=== PATIENT | male | born 1970 | race African-American/Black ===

== ENCOUNTER 2017-01-19 19:53 | Inpatient (IN) | payer OTHER ==
--- NOTE | 2017-01-19 20:15 | PDOC ---
History of Present Illness - General History Source: Patient Exam Limitations: No Limitations - History of Present Illness Initial Comments: 01/19/17 20:46 The patient is a 46 year old male with significant past medical history of etoh abuse and smoking who presents to the ED sent from [facility] for treatment and evaluation of blood pressure. Patient denies history of blood pressure. His blood pressure is noted to be 190/133 and pulse is 97 here in the ER department. Patient states his blood pressure is normally elevated when he drinks alcohol. He denies lightheadedness, diaphoresis, headache, vision changes , chest pain, palpitations, SOB, jaw pain, shoulder pain, or arm pain. The patient denies fever, chills, cough, abdominal pain, nausea, vomiting, and diarrhea. Allergies: NKDA Social History: etoh abuse, current smoker (PPD), denies drug use. Past Surgical History: None reported PCP: None reported <Chayo Ramírez - Last Filed: 01/19/17 20:46> - General History Source: Patient <Doug Isaac - Last Filed: 01/20/17 02:28> - General Chief Complaint: Blood Pressure Problem Stated Complaint: ELEVATED BLOOD PRESSURE Time Seen by Provider: 01/19/17 20:11 Past History <Chayo Ramírez - Last Filed: 01/19/17 20:46> - Psycho/Social/Smoking Cessation Hx Suicidal Ideation: No Smoking History: Current every day smoker Information on smoking cessation initiated: No Hx Alcohol Use: Yes <Doug Isaac - Last Filed: 01/20/17 02:28> - Past Medical History Allergies/Adverse Reactions: Allergies Allergy/AdvReac Type Severity Reaction Status Date / Time No Known Allergies Allergy Verified 01/19/17 20:45 Home Medications: Ambulatory Orders NK [No Known Home Medication] 01/19/17 Review of Systems - Review of Systems Able to Perform ROS?: Yes Comments:: 01/19/17 20:47 CONSTITUTIONAL: Absent: fever, no chills, no fatigue EYES: Absent: visual changes ENT: Absent: ear pain, no sore throat CARDIOVASCULAR: +elevated bp Absent: chest pain, no palpitations RESPIRATORY: Absent: cough, no SOB GI: Absent: abdominal pain, no nausea, no vomiting, no constipation, no diarrhea GENITOURINARY: Absent: dysuria, no frequency, no hematuria MUSKULOSKELETAL: Absent: back pain, no arthralgia, no myalgia SKIN: Absent: rash NEURO: Absent: headache <Chayo Ramírez - Last Filed: 01/19/17 20:46> *Physical Exam - Vital Signs Last Vital Signs Temp Pulse Resp BP Pulse Ox 98.2 F 97 H 18 190/133 96 01/19/17 20:08 01/19/17 20:08 01/19/17 20:08 01/19/17 20:08 01/19/17 20:08 - Physical Exam Comments: 01/19/17 20:47 GENERAL: Well-appearing, well-nourished. No apparent distress. HEENT: Normocephalic, atraumatic. PERRL, EOM intact. CARDIOVASCULAR: Normal S1, S2. Regular rate and rhythm. PULMONARY: Clear to auscultation bilaterally. ABDOMEN: Soft, non-distended, non-tender. EXTREMITIES: Normal ROM in all four extremities. No gross deformities. SKIN: Warm, dry. No rash NEUROLOGICAL: No focal neurological deficits. <Chayo Ramírez - Last Filed: 01/19/17 20:46> - Vital Signs Last Vital Signs Temp Pulse Resp BP Pulse Ox 98.2 F 97 H 18 190/133 96 01/19/17 20:08 01/19/17 20:08 01/19/17 20:08 01/19/17 20:08 01/19/17 20:08 <Doug Isaac - Last Filed: 01/20/17 02:28> Heart Score/ECG Review - ECG Impressions Comment:: 01/19/17 20:47 NSR @91bpm Possible left atrial enlargement Left ventricular hypertrophy T wave abnormality, consider lateral ischemia Abnormal ECG <SuekalynYamilaChayo - Last Filed: 01/19/17 20:46> ED Treatment Course - LABORATORY CBC & Chemistry Diagram: 01/19/17 20:45 01/19/17 20:45 <Doug Isaac - Last Filed: 01/20/17 02:28> Medical Decision Making - Medical Decision Making 01/20/17 02:27 Dr. Isaac: The scribe's documentation has been prepared under my direction and personally reviewed by me in its entirery. I confirm that the note above accurately reflects all work, treatment, procedures, and medical decision making performed by me. Pt found to have positive troponin on second CE. BP improved. UDS positive for +PCP, + cocaine <Doug Isaac - Last Filed: 01/20/17 02:28> *DC/Admit/Observation/Transfer - Attestations Scribe Attestion: 01/19/17 20:49 Documentation prepared by Chayo Ramírez, acting as medical radiation tech for Doug Isaac MD <Chayo Ramírez - Last Filed: 01/19/17 20:46> - Discharge Dispostion Admit: Yes <Doug Isaac - Last Filed: 01/20/17 02:28> Diagnosis at time of Disposition: NSTEMI (non-ST elevated myocardial infarction), Drug abuse Hypertension Qualifiers: Hypertension type: other secondary hypertension Qualified Code(s): I15.8 - Other secondary hypertension - Referrals Referrals: Jony Johnson MD [Primary Care Provider] -
[2017-01-19] MEDS ORDERED: hydrALAZINE HCL 20 MG/ML VIAL IVPUSH ONE ×2 (20:36→22:00)
[2017-01-19 20:44] LABS: URINE APPEARANCE CLEAR; URINE BILIRUBIN NEGATIVE (NEGATIVE); URINE BLOOD NEGATIVE (NEGATIVE); URINE COLOR COLORLESS; URINE GLUCOSE (UA) NEGATIVE (NEGATIVE); URINE KETONE NEGATIVE (NEGATIVE); URINE LEUK ESTERASE NEGATIVE (NEGATIVE); URINE NITRITE NEGATIVE (NEGATIVE); URINE PROTEIN NEGATIVE (NEGATIVE); URINE UROBILINOGEN NEGATIVE E.U./dl (0.2-1.0)
[2017-01-19 20:53] LABS: BASOPHIL 0.8 % (0-2.0); EOSINOPHIL 1.2 % (0-4.5); MCHC 32.7 g/dl (32.0-35.9); MEAN CELL VOLUME 82.6 fl (80-96); MEAN PLT VOLUME 8.8 fl (7.5-11.1); NEUTROPHILS 52.9 % (42.8-82.8); PLATELET COUNT 167 K/MM3 (134-434); WHITE BLOOD COUNT 6.9 K/mm3 (4.0-10.0)
[2017-01-19] MEDS ORDERED: hydrALAZINE HCL 20 MG/ML VIAL ONE (21:04)
[2017-01-19 21:05] LABS: URINE MARIJUANA THC NEGATIVE ng/ml (CUTOFF=50)
[2017-01-19] MEDS ORDERED: LORAZEPAM CARPU-JECT 2 MG/ML DISP.SYRIN IVPUSH ONE (21:05)
[2017-01-19 21:24] LABS: ALBUMIN 4.3 g/dl (3.4-5.0); ANION GAP 11 (8-16); BILIRUBIN,TOTAL 0.6 mg/dL (0.2-1.0); CALCIUM 8.5 mg/dL (8.5-10.1); CO2 27 mmol/L (21-32); GLUCOSE,RANDOM 77 mg/dL (74-106); MAGNESIUM 2.6 mg/dL (1.8-2.4); SGOT/AST 49 U/L (15-37); SGPT/ALT 36 U/L (12-78); TOT PROT 7.7 g/dl (6.4-8.2)
[2017-01-19] MEDS ORDERED: LORAZEPAM CARPU-JECT 2 MG/ML DISP.SYRIN ONE (21:32)
[2017-01-19 21:36] LABS: ALK PHOS 57 U/L (45-117); TROPONIN I 0.05 ng/ml (0.00-0.05)
[2017-01-20 01:45] LABS: TROPONIN I 0.25 ng/ml (0.00-0.05)
[2017-01-20] MEDS ORDERED: ASPIRIN 81 MG CHEWABLE TABLETS PO ONE (01:54)
[2017-01-20] MEDS ORDERED: ASPIRIN 81 MG CHEWABLE TABLETS ONE (02:19)
--- NOTE | 2017-01-20 03:06 | HP ---
<Helena Burch - Last Filed: 01/20/17 03:43> CHIEF COMPLAINT: PCP: HISTORY OF PRESENT ILLNESS: Patient is a 46 yo intoxicated M with a PMHx of HTN, continuous polysubstance abuse presents BIBA from [facility] with high blood pressure. Patient is a poor historian secondary to recent substance abuse. We are unsure if he is compliant with his medications at home. Patient presented earlier today to [facility] after drinking ETOH and smoking cocaine and was found to have high BP and was sent to ED for further evaluation. At [place] lavs showed elevated CK and trending troponin. Patient states hes never had any chest pain, palpitations, blurred vision and only reported to [facility] for detox. Patient denies IV drug abuse. Patient admits to daily weed, cocaine and ETOH abuse. Denies previous cardiac workup. Last drink 12 hours ago. Patients thinks his pharmacy is either a [facility] or a [facility] on [address] [place]. ER course was notable for: (1) Elevated Troponins (2) ECG with flipped T waves in lateral leads Recent Travel: Denies PAST MEDICAL HISTORY: HTN, Polysubstance abuse PAST SURGICAL HISTORY: None Social History: Smoking: None Alcohol: Frequent episodes of 1-2 days straight of beer drinking (multiple 40s). Drugs: Marijuana, Crack Cocaine. Denies IV drug use Family History: None Allergies No Known Allergies Allergy (Verified 01/19/17 20:45) HOME MEDICATIONS: Home Medications Medication Instructions Recorded NK [No Known Home Medication] 01/19/17 REVIEW OF SYSTEMS CONSTITUTIONAL: Absent: fever, chills, diaphoresis, generalized weakness, malaise, loss of appetite, weight change HEENT: Absent: rhinorrhea, nasal congestion, throat pain, throat swelling, difficulty swallowing, mouth swelling, ear pain, eye pain, visual changes CARDIOVASCULAR: Absent: chest pain, syncope, palpitations, irregular heart rate, lightheadedness , peripheral edema RESPIRATORY: Absent: cough, shortness of breath, dyspnea with exertion, orthopnea, wheezing, stridor, hemoptysis GASTROINTESTINAL: Absent: abdominal pain, abdominal distension, nausea, vomiting, diarrhea, constipation, melena, hematochezia GENITOURINARY: Absent: dysuria, frequency, urgency, hesitancy, hematuria, flank pain, genital pain MUSCULOSKELETAL: Absent: myalgia, arthralgia, joint swelling, back pain, neck pain SKIN: Absent: rash, itching, pallor HEMATOLOGIC/IMMUNOLOGIC: Absent: easy bleeding, easy bruising, lymphadenopathy, frequent infections ENDOCRINE: Absent: unexplained weight gain, unexplained weight loss, heat intolerance, cold intolerance NEUROLOGIC: Absent: headache, focal weakness or paresthesias, dizziness, unsteady gait, seizure, mental status changes, bladder or bowel incontinence PSYCHIATRIC: Absent: anxiety, depression, suicidal or homicidal ideation, hallucinations. PHYSICAL EXAMINATION Vital Signs - 24 hr 01/20/17 01/20/17 02:50 02:52 Pulse Rate [ 107 H Apical] Respiratory 14 Rate Blood Pressure 154/100 [Right Arm] O2 Sat by Pulse 99 99 Oximetry (%) GENERAL: Intoxicated. Slurred speech and drowsy. In no acute distress. HEAD: Normal with no signs of trauma. EYES: Pupils equal, round and reactive to light, extraocular movements intact, sclera anicteric, conjunctiva clear. No lid lag. EARS, NOSE, THROAT: Ears normal, nares patent, oropharynx clear without exudates. Moist mucous membranes. NECK: Normal range of motion, supple without lymphadenopathy, JVD, or masses. LUNGS: Breath sounds equal, clear to auscultation bilaterally. No wheezes, and no crackles. No accessory muscle use. HEART: Regular rate and rhythm, normal S1 and S2 without murmur, rub or gallop. No chest wall tenderness ABDOMEN: Soft, nontender, not distended, normoactive bowel sounds, no guarding, no rebound, no masses. No hepatomegaly or splenomegaly. MUSCULOSKELETAL: Normal range of motion at all joints. No bony deformities or tenderness. No CVA tenderness. UPPER EXTREMITIES: 2+ pulses, warm, well-perfused. No cyanosis. No clubbing. Cap refill <2 seconds. No peripheral edema. No tremors, no diaphoresis LOWER EXTREMITIES: 2+ pulses, warm, well-perfused. No calf tenderness. No peripheral edema. NEUROLOGICAL: Cranial nerves II-XII intact. No gross focal deficits. PSYCHIATRIC: Cooperative. Good eye contact. Appropriate mood and affect. SKIN: Warm, dry, normal turgor, no rashes or lesions noted. Chest X-Ray No acute findings ASSESSMENT/PLAN: Patient is a 46 yo intoxicated M with a PMHx of HTN and continuous polysubstance abuse presents with elevated troponins. 1.) Elevated troponins Concern for cocaine induced . -trend cardiac markers Q 6 until trop peaks -Consult cardio -Continuous cardiac monitoring -Echo -Will only give aspirin for now 2.) HTN -Responded to hydralazine, will avoid beta blockers 3.) Continuous Polysubstance abuse -Currently intoxicated -Will monitor for withdrawal -Start librium protocol -Interested in 28 day rehab program, will consult when medically optimized -Start thiamine folate multivitamins -IVFs -Banana bag Documentation prepared by Helena Burch, acting as biomedical electronics technician for Gabby Milian M.D. <Gabby Milian - Last Filed: 01/20/17 15:41> CHIEF COMPLAINT: PCP: HISTORY OF PRESENT ILLNESS: ER course was notable for: (1) (2) (3) Recent Travel: PAST MEDICAL HISTORY: PAST SURGICAL HISTORY: Social History: Smoking: Alcohol: Drugs: Family History: Allergies No Known Allergies Allergy (Verified 01/19/17 20:45) HOME MEDICATIONS: Home Medications Medication Instructions Recorded NK [No Known Home Medication] 01/19/17 REVIEW OF SYSTEMS CONSTITUTIONAL: Absent: fever, chills, diaphoresis, generalized weakness, malaise, loss of appetite, weight change HEENT: Absent: rhinorrhea, nasal congestion, throat pain, throat swelling, difficulty swallowing, mouth swelling, ear pain, eye pain, visual changes CARDIOVASCULAR: Absent: chest pain, syncope, palpitations, irregular heart rate, lightheadedness , peripheral edema RESPIRATORY: Absent: cough, shortness of breath, dyspnea with exertion, orthopnea, wheezing, stridor, hemoptysis GASTROINTESTINAL: Absent: abdominal pain, abdominal distension, nausea, vomiting, diarrhea, constipation, melena, hematochezia GENITOURINARY: Absent: dysuria, frequency, urgency, hesitancy, hematuria, flank pain, genital pain MUSCULOSKELETAL: Absent: myalgia, arthralgia, joint swelling, back pain, neck pain SKIN: Absent: rash, itching, pallor HEMATOLOGIC/IMMUNOLOGIC: Absent: easy bleeding, easy bruising, lymphadenopathy, frequent infections ENDOCRINE: Absent: unexplained weight gain, unexplained weight loss, heat intolerance, cold intolerance NEUROLOGIC: Absent: headache, focal weakness or paresthesias, dizziness, unsteady gait, seizure, mental status changes, bladder or bowel incontinence PSYCHIATRIC: Absent: anxiety, depression, suicidal or homicidal ideation, hallucinations. PHYSICAL EXAMINATION Vital Signs - 24 hr 01/20/17 01/20/17 02:50 02:52 Pulse Rate [ 107 H Apical] Respiratory 14 Rate Blood Pressure 154/100 [Right Arm] O2 Sat by Pulse 99 99 Oximetry (%) GENERAL: Awake, alert, and fully oriented, in no acute distress. HEAD: Normal with no signs of trauma. EYES: Pupils equal, round and reactive to light, extraocular movements intact, sclera anicteric, conjunctiva clear. No lid lag. EARS, NOSE, THROAT: Ears normal, nares patent, oropharynx clear without exudates. Moist mucous membranes. NECK: Normal range of motion, supple without lymphadenopathy, JVD, or masses. LUNGS: Breath sounds equal, clear to auscultation bilaterally. No wheezes, and no crackles. No accessory muscle use. HEART: Regular rate and rhythm, normal S1 and S2 without murmur, rub or gallop. ABDOMEN: Soft, nontender, not distended, normoactive bowel sounds, no guarding, no rebound, no masses. No hepatomegaly or splenomegaly. MUSCULOSKELETAL: Normal range of motion at all joints. No bony deformities or tenderness. No CVA tenderness. UPPER EXTREMITIES: 2+ pulses, warm, well-perfused. No cyanosis. No clubbing. Cap refill <2 seconds. No peripheral edema. LOWER EXTREMITIES: 2+ pulses, warm, well-perfused. No calf tenderness. No peripheral edema. NEUROLOGICAL: Cranial nerves II-XII intact. Normal speech. Normal gait. PSYCHIATRIC: Cooperative. Good eye contact. Appropriate mood and affect. SKIN: Warm, dry, normal turgor, no rashes or lesions noted. ASSESSMENT/PLAN: Visit type - Emergency Visit Emergency Visit: Yes ED Registration Date: 01/20/17 Care time: The patient presented to the Emergency Department on the above date and was hospitalized for further evaluation of their emergent condition. - New Patient This patient is new to me today: Yes Date on this admission: 01/20/17 - Critical Care Critical Care patient: No
[2017-01-20] MEDS ORDERED: FOLIC ACID INJECTION - 1 MG, THIAMINE HCL 100 MG, MULTIVIT INJECTION ADULT 10 ML in SOD... IVPB ONE (03:45)
[2017-01-20] MEDS: SODIUM CHLORIDE 1,000 ML IV SCH ×2 (04:30→13:40)
[2017-01-20] MEDS ORDERED: dilTIAZem HCL 30 MG TABLET (FP) PO ONE ×2 (06:49→18:15)
[2017-01-20 07:13] LABS: BASOPHIL 1.1 % (0-2.0); EOSINOPHIL 0.6 % (0-4.5); MCH 27.2 pg (25.7-33.7); MCHC 32.8 g/dl (32.0-35.9); MEAN CELL VOLUME 83.1 fl (80-96); MEAN PLT VOLUME 8.7 fl (7.5-11.1); NEUTROPHILS 60.7 % (42.8-82.8); PLATELET COUNT 152 K/MM3 (134-434); RDW 16.8 % (11.9-15.9); WHITE BLOOD COUNT 5.4 K/mm3 (4.0-10.0)
--- NOTE | 2017-01-20 07:21 | PN ---
Physical Exam: SUBJECTIVE: Patient seen and examined at bed side. patient feeling better, denies, cp, papitations, sob, Parmar, n/V/D, fevers, chills. no current complaints at this time. patient has an appetite. patient reports he is feeling well and requested to go back to [facility]. Patient reports smoking three dimes of crack cocain, 52 oz of bear, and some marijuana last night. patient reports never had alcohol withdrawal or seizures. OBJECTIVE: Vital Signs Period Temp Pulse Resp BP Sys/Blanchard Pulse Ox Last 24 Hr 92-107 14-21 154-185/100-105 99-99 GENERAL: The patient is awake, alert, and fully oriented, in no acute distress. sitting comfortably. HEAD: Normal with no signs of trauma. EYES: PERRL, extraocular movements intact, sclera anicteric, conjunctiva clear. No ptosis. ENT: Ears normal, nares patent, oropharynx clear without exudates, moist mucous membranes. NECK: Trachea midline, full range of motion, supple. LUNGS: Breath sounds equal, clear to auscultation bilaterally, no wheezes, no crackles, no accessory muscle use. HEART: tachy and regular rhythm, S1, S2 without murmur, rub or gallop. ABDOMEN: Soft, nontender, nondistended, normoactive bowel sounds, no guarding, no rebound, no hepatosplenomegaly, no masses. EXTREMITIES: 2+ pulses, warm, well-perfused, no edema. NEUROLOGICAL: Cranial nerves II through XII grossly intact. Normal speech, gait not observed. PSYCH: Normal mood, normal affect. SKIN: Warm, dry, normal turgor, no rashes or lesions noted Active Medications Active Medications Generic Name Dose Route Start Last Admin Trade Name Freq PRN Reason Stop Dose Admin Amlodipine Besylate 5 mg 01/20/17 10:00 01/20/17 10:06 Norvasc - PO 5 mg DAILY ARABELLA Administration Aspirin 81 mg 01/21/17 10:00 Ecotrin - PO DAILY ARABELLA Atorvastatin Calcium 40 mg 01/20/17 22:00 Lipitor - PO HS ARABELLA Enoxaparin Sodium 40 mg 01/20/17 12:30 Lovenox - SQ DAILY ARABELLA Folic Acid 1 mg 01/20/17 10:00 01/20/17 10:06 Folic Acid - PO 1 mg DAILY ARABELLA Administration Sodium Chloride 1,000 mls @ 100 mls/hr 01/20/17 03:15 01/20/17 04:30 Normal Saline - IV 100 mls/hr ASDIR ARABELLA Administration Multivitamins/Minerals/Vitamin C 1 tab 01/20/17 10:00 Tab-A-Vit - PO DAILY ARABELLA Pneumococcal 13-Valent Conj Vacc 0.5 ml 01/20/17 12:57 Prevnar 13 Syringe - IM 01/20/17 12:58 .ONCE ONE Thiamine HCl 100 mg 01/20/17 10:00 Vitamin B1 - PO DAILY [facility] Chronic uncontrolled HTN Elevated cardiac biomarkers: denies chest pain Laboratory Tests 01/19/17 01/20/17 01/20/17 20:45 00:43 07:00 Creatine Kinase 1141 H 965 H 734 H D CK-MB (CK-2) 8.620 H 7.456 H 6.432 H Troponin I 0.05 0.25 H D 0.47 H D REC: Check 3rd enzyme ASSESSMENT/PLAN: Patient is a 46 yo intoxicated M with a PMHx of HTN and continuous polysubstance abuse presents with elevated troponins. 1.) Elevated cardiac biomarkers with abnormal EKG, trop trending up x 3, denies CP, palpitations, SOB, diaphoresis, PARMAR. most likely cocain induce myopathy vs NSTEMI -Trend cardiac markers Q 6 until trop peaks, repeat EKG. - consult appreciated. -follow up Echo RV systolic pressure elevated, LV concentric hypertrophy. -Started Lovenox prophylaxis - Loaded with ASA in ed, will give 81mg ASA daily -Stress MIBI (Persantine) prior to d/c, likely tomorrow as baseline ECG w/ LVH NSST changes 2.) HTN- trending down- 185/105-->BP 152/89 Control BP w/ Amlodipine 5 mg PO daily avoid B-blockers 3.) Polysubstance abuse: currently no signs of withdraw. low CIWA score -Will monitor for withdrawal -will start librium protocol if there is signs of withdrawal. -Interested in 28 day rehab program, will consult when medically optimized -cont thiamine folate multivitamins -IVFs -Banana bag 4) leukocytosis, likely reactive, no fever no sign of infection. will continue to monitor. FEN IVNS NPO replete electrolyte as needed. Visit type - Emergency Visit Emergency Visit: Yes ED Registration Date: 01/20/17 Care time: The patient presented to the Emergency Department on the above date and was hospitalized for further evaluation of their emergent condition. - New Patient This patient is new to me today: Yes Date on this admission: 01/20/17 - Critical Care Critical Care patient: No
--- NOTE | 2017-01-20 09:13 | PN ---
Progress Note (short form) - Note Progress Note: Cardiology Consult Dictated Cocaine Abuse Chronic uncontrolled HTN Elevated cardiac biomarkers: denies chest pain Abnl ECG REC: Check 3rd enzyme Echo Control BP w/ Amlodipine, avoid B-blockers ASA daily Stress MIBI (Persantine) prior to d/c, likely tomorrow as baseline ECG w/ LVH NSST changes
[2017-01-20 09:15] LABS: CALCIUM 7.7 mg/dL (8.5-10.1); MAGNESIUM 2.5 mg/dL (1.8-2.4); PHOSPHOROUS 3.5 mg/dL (2.5-4.9)
[2017-01-20 09:25] LABS: TROPONIN I 0.47 ng/ml (0.00-0.05)
[2017-01-20] MEDS ORDERED: FOLIC ACID 1 MG TABLET (FP) ONE (09:57)
[2017-01-20] MEDS ORDERED: amLODIPine BESYLATE 5 MG TABLET (FP) ONE (09:58)
[2017-01-20] MEDS ORDERED: ASPIRIN COATED 81 MG TABLET.EC ONE (09:59)
[2017-01-20] MEDS ORDERED: amLODIPine BESYLATE 5 MG TABLET (FP) PO SCH (10:00)
[2017-01-20] MEDS: FOLIC ACID 1 MG TABLET (FP) PO SCH (10:06)
--- NOTE | 2017-01-20 10:44 | EKG ---
Test Reason : Blood Pressure : / mmHG Vent. Rate : 101 BPM Atrial Rate : 101 BPM P-R Int : 116 ms QRS Dur : 084 ms QT Int : 396 ms P-R-T Axes : 070 070 060 degrees QTc Int : 513 ms SINUS TACHYCARDIA POSSIBLE LEFT ATRIAL ENLARGEMENT LEFT VENTRICULAR HYPERTROPHY T WAVE ABNORMALITY, CONSIDER LATERAL ISCHEMIA ABNORMAL ECG WHEN COMPARED WITH ECG OF 19-JAN-2017 20:30, QT HAS LENGTHENED Confirmed by SHANTE MCGHEE, ZEESHAN ([id number]) on 01/20/2017 10:43:42 AM Referred By: Confirmed By:ZEESHAN FREY MD
[2017-01-20] MEDS ORDERED: ENOXAPARIN NA (PORCINE) 40 MG/0.4 ML DISP.SYRIN SQ SCH (12:30)
[2017-01-20 12:42] VITALS: BMI 22.1
[2017-01-20] MEDS ORDERED: ENOXAPARIN NA (PORCINE) 40 MG/0.4 ML DISP.SYRIN SQ ONE (12:49)
[2017-01-20] MEDS ORDERED: PNEUMOC 13-VAL CONJ-DIP CRM/PF 0.5 ML DISP.SYRIN IM ONE (12:57)
[2017-01-20] MEDS: MULTIVITAMINS (DAILY MVI) TABLET (FP) PO SCH (13:36)
[2017-01-20] MEDS: THIAMINE HCL 100 MG TABLET (FP) PO SCH (13:36)
[2017-01-20] MEDS ORDERED: HEPARIN NA (PORCINE) 5,000 UNITS/ML 1ML VIAL IVPUSH PRN ×2 (15:48)
--- NOTE | 2017-01-20 15:56 | EKG ---
Test Reason : Blood Pressure : / mmHG Vent. Rate : 098 BPM Atrial Rate : 098 BPM P-R Int : 116 ms QRS Dur : 082 ms QT Int : 412 ms P-R-T Axes : 068 070 -67 degrees QTc Int : 525 ms NORMAL SINUS RHYTHM T WAVE ABNORMALITY, CONSIDER LATERAL ISCHEMIA PROLONGED QT ABNORMAL ECG WHEN COMPARED WITH ECG OF 20-JAN-2017 02:22, NONSPECIFIC T WAVE ABNORMALITY, WORSE IN INFERIOR LEADS Confirmed by SHANTE MCGHEE, ZEESHAN ([id number]) on 01/20/2017 3:55:43 PM Referred By: Confirmed By:ZEESHAN FREY MD
[2017-01-20] MEDS ORDERED: HEPARIN - 25,000 UNIT in SODIUM CHLORIDE 495 ML IV SCH (16:00)
[2017-01-20] MEDS ORDERED: HEPARIN INFUSION - 500 ML IVPB ONE (17:26)
[2017-01-20] MEDS ORDERED: MAGNESIUM SULF 50% (8.12 MEQ/2 ML-1 GM VIAL) IVPB ONE (17:33)
[2017-01-20] MEDS ORDERED: NIFEdipine 10 MG CAPSULE (FP) PO STA (18:01)
[2017-01-20 18:11] LABS: TROPONIN I 0.3 ng/ml (0.00-0.05)
[2017-01-20] MEDS ORDERED: PNEUMOCOCCAL 23 VACCINE 0.5 ML VIAL IM ONE (18:15)
[2017-01-20] MEDS: HEPARIN INFUSION - 500 ML IVPB SCH (18:45)
[2017-01-20] MEDS: CLOPIDOGREL BISULFATE 75 MG TABLET (FP) PO SCH (18:46)
[2017-01-20] MEDS ORDERED: ATORVASTATIN CA 40 MG TABLET (FP) PO SCH (22:00)
[2017-01-21] MEDS: HEPARIN INFUSION - 500 ML IVPB SCH (03:10)
[2017-01-21] MEDS ORDERED: amLODIPine BESYLATE 10 MG TABLET (FP) PO SCH (07:35)
--- NOTE | 2017-01-21 09:01 | PN ---
Progress Note, Physician Chief Complaint: chest pain free Echo w LVH and nl LV fxn TELE: NSR - Current Medication List Current Medications: Active Medications Amlodipine Besylate (Norvasc -) 10 mg PO DAILY [facility] Aspirin (Ecotrin -) 81 mg PO DAILY ARABELLA Atorvastatin Calcium (Lipitor -) 40 mg PO HS ARABELLA Last Admin: 01/20/17 21:14 Dose: Not Given Clopidogrel Bisulfate (Plavix -) 75 mg PO DAILY [facility] Last Admin: 01/20/17 18:46 Dose: 75 mg Folic Acid (Folic Acid -) 1 mg PO DAILY [facility] Last Admin: 01/20/17 10:06 Dose: 1 mg Heparin Sodium (Porcine) (Heparin -) 1,000 unit IVPUSH PRN PRN PRN Reason: Heparin Last Admin: 01/21/17 03:09 Dose: 1,000 unit Heparin Sodium (Porcine) (Heparin -) 5,000 unit IVPUSH PRN PRN PRN Reason: Heparin Heparin Sodium/Dextrose (Heparin Infusion -) 500 mls @ 18 mls/hr IVPB TITR ARABELLA ; 900 UNITS/HR PRN Reason: Protocol Last Admin: 01/21/17 03:10 Dose: 20 mls/hr Multivitamins/Minerals/Vitamin C (Tab-A-Vit -) 1 tab PO DAILY [facility] Last Admin: 01/20/17 13:36 Dose: 1 tab Thiamine HCl (Vitamin B1 -) 100 mg PO DAILY [facility] Last Admin: 01/20/17 13:36 Dose: 100 mg - Objective Vital Signs: Vital Signs Temperature 98.4 F 01/21/17 06:00 Pulse Rate 88 01/21/17 06:00 Respiratory Rate 18 01/21/17 06:00 Blood Pressure 154/62 01/21/17 06:00 O2 Sat by Pulse Oximetry (%) 99 01/20/17 21:00 Constitutional: Yes: No Distress Eyes: Yes: Conjunctiva Clear Cardiovascular: Yes: Regular Rate and Rhythm Respiratory: Yes: CTA Bilaterally Gastrointestinal: Yes: Soft Edema: No Neurological: Yes: Alert Labs: CBC, BMP 01/20/17 07:00 01/20/17 07:00 Laboratory Tests 01/19/17 01/20/17 01/20/17 20:10 00:43 07:00 PTT (Actin FS) Potassium 3.7 Creatine Kinase 965 H 734 H D CK-MB (CK-2) 7.456 H 6.432 H Troponin I 0.25 H D 0.47 H D Phencyclidine Screen Positive Cocaine Screen Positive 01/20/17 01/21/17 17:15 00:30 PTT (Actin FS) 41.8 H Potassium Creatine Kinase 612 H CK-MB (CK-2) 4.227 H Troponin I 0.30 H D Phencyclidine Screen Cocaine Screen - ....Imaging EKG: Image Reviewed Assessment/Plan Polysubstance abuse: cocaine and PCP NSTEMI in setting cocaine use: ?spasm. Nl LV fx and chest pain free x 24 hours, no sig V-ectopy with downtrending enzymes REC: Extensive bedside discussion w/ patient, witnessed by RN. Options of persantine MIBI on Tuesday (48 hours post CO) vs transfer for cath were recommended strongly. Explained we need to evaluate for presence of coronary blockage, which if undetected and not treated may result in recurrent CO/. He refused both recommended options and understands the ramifications. Therefore, would treat medically with ASA/Plavix/statin and Norvasc to be titrated to BP < 140/90 Avoid beta blockers. No further cardiac work up. Would assure he is discharged to detox center.
[2017-01-21] MEDS: MULTIVITAMINS (DAILY MVI) TABLET (FP) PO SCH (09:13)
[2017-01-21] MEDS: CLOPIDOGREL BISULFATE 75 MG TABLET (FP) PO SCH (09:13)
[2017-01-21] MEDS: THIAMINE HCL 100 MG TABLET (FP) PO SCH (09:13)
[2017-01-21] MEDS: FOLIC ACID 1 MG TABLET (FP) PO SCH (09:13)
[2017-01-21] MEDS ORDERED: ASPIRIN COATED 81 MG TABLET.EC PO SCH (10:00)
--- NOTE | 2017-01-21 10:13 | CONS ---
CARDIOLOGY CONSULTATION DATE OF CONSULTATION: 01/20/2017 REQUESTED BY: Gabby Milian MD REASON FOR CONSULTATION: Chest pain. HISTORY OF PRESENT ILLNESS: The patient is a 46-year-old male with past medical history of hypertension, cocaine abuse who was transferred from [facility] [place] to [facility] for uncontrolled hypertension with blood pressure of 170/90. He denies chest pain, shortness of breath, palpitations or CHF symptoms on my review of systems. Troponins were drawn, and his second set was 0.25. He denies chest pain yesterday. He denies chest pain this morning. He denies history of prior myocardial infarction. He does admit to using cocaine yesterday, and his urine tox was positive for cocaine as well as PCP. PAST MEDICAL HISTORY: Past medical history includes hypertension, polysubstance abuse, smoking, MEDICATIONS: Patient is on home medications for hypertension but does not recall the names. FAMILY HISTORY: Noncontributory. SOCIAL HISTORY: He smokes cigarettes, uses cocaine. He was checked into [facility] [place] for rehab yesterday. CURRENT MEDICATIONS: Current medications include Norvasc 5 mg p.o. daily, aspirin 81 mg daily, Lipitor 40 q h.s., folic acid, multivitamin and normal saline. PHYSICAL EXAM: General: Alert and oriented. Vital signs: Afebrile, temperature 98.1. 8 a.m. blood pressure was 170/100 prior to medications. O2 saturation 99 on room air. Neck: No bruits, 2+ pulses. Heart: S1, S2/regular. No murmurs. Chest clear. Abdomen: Soft, nontender. Extremities: No edema. His EKG shows normal sinus at 91 with left ventricular hypertrophy and nonspecific T-wave inversions in V4 through V6. His chest x-ray showed no acute pathology. LABS: CBC: White count 5.4, hematocrit 35, platelets 152, sodium 137, potassium 3.6, creatinine 1, CK 1141, 965, CKMV 8.6, 7.5. Troponin number 1: 0.05, number 2, 0.25. Third set is pending. ASSESSMENT: 46-year-old male with chronic hypertension, left ventricular hypertrophy, evidence of hypertensive heart disease, cocaine abuse. Presents to the ER from rehab with uncontrolled chronic hypertension and elevated cardiac biomarkers, NSTEMI in setting of cocaine and PCP use. Possible coronary vasospasm. Patient denies chest pain on my review of systems. PLAN: 1. Aspirin 81 mg daily. 2. Control of blood pressure with calcium channel blockers. Will begin Norvasc 5 mg daily to be titrated. Avoid beta blockers, given cocaine. 3. Echocardiogram today for assessment of left ventricular function. 4. Plan for probable Persantine stress test prior to discharge for evaluation of myocardial blood flow. At this point, would favor a non-invasive risk stratification approach prior to committing to angiography as he seems to be asymptomatic, and his compliance with medications seems questionable. If cardiac enzymes continue to rise significantly, if he has recurrent chest pain or if left ventricular function is significantly reduced, we may decide to change our strategy and pursue angiography at that time. Patient is threatening to sign out of hospital- discussed importance of further diagnostic studies, labs and observation and he agreed to stay for the moment. Thank you for the consultation. CLINT DEL REAL M.D. [id number] MTDChay
[2017-01-21 12:20] VITALS: BP 164/103; PULSE 78; TEMP 97.7
--- NOTE | 2017-01-21 13:10 | PN ---
Teaching Attending Note Name of Resident: Bayron Montoya ATTENDING PHYSICIAN STATEMENT I saw and evaluated the patient. I reviewed the resident's note and discussed the case with the resident. I agree with the resident's findings and plan as documented. SUBJECTIVE:remains asymptomatic. refusing to go for cardiac cath today or wait over the weekend for stress test. explained risks of not being further evaluated. accepted these risks and does not want further testing as he had no symptoms. expresses desire to go to [facility] to get his "life on track" deneis Cp, SOB,fever, chills, palpitations OBJECTIVE: Last Vital Signs Temp Pulse Resp BP Pulse Ox 97.7 F 78 19 164/103 100 01/21/17 10:01/21/17 10:00 01/21/17 10:01/21/17 10:01/21/17 09:00 General NAD CV S1 S2 RRR no murmur/rub/gallop Lungs CTA B/L no wheezing/rales/rhonchi ASSESSMENT AND PLAN: 46 yo intoxicated M with a PMHx of HTN and continuous polysubstance abuse presents with elevated troponins. 1.) NSTEMI- troponin peaked 0.4. started on heparin ggt yesterday. no events on monitor. refusing to wait over the weekend for stress test. echo no WMA. medical management at this time. asa/plavix/statin 2.) HTN-above goal. increase norvasc to 10mg 3.) Continuous Polysubstance abuse- no signs of withdrawal. avoid betablockers. spoke with Dr Ramses Jiang about this man's desire for drug abstinence. intersted in being evalauted for inpatient program and detox if necessary. accepts him to [facility]. 4) d/c to [facility]. educated importance of drug abstinence and need for medication complaince. will need cardio and PMD follow up after complete rehab program.
--- NOTE | 2017-01-21 13:18 | DS ---
Physical Exam: SUBJECTIVE: Patient seen and examined Pt is awake, alert and oriented to time place and person Pt denies chest pain, palpitation, shortness of breath No dizziness, no confusion, no fever or chills. Pt was very anxious and wanted to leave and return to [facility] OBJECTIVE: Vital Signs Period Temp Pulse Resp BP Sys/Blanchard Pulse Ox Last 24 Hr 97.7 F-98.8 F 78-90 16-19 150-172/62-103 99-100 PHYSICAL EXAM GENERAL: The patient is awake, alert, and fully oriented, in no acute distress. HEAD: Normal with no signs of trauma. NECK: Trachea midline, full range of motion, supple. LUNGS: Breath sounds equal, clear to auscultation bilaterally, no wheezes, no crackles, no accessory muscle use. HEART: Regular rate and rhythm, S1, S2 without murmur, rub or gallop. ABDOMEN: Soft, nontender, nondistended, normoactive bowel sounds, no guarding, no rebound, no hepatosplenomegaly, no masses. EXTREMITIES: 2+ pulses, warm, well-perfused, no edema. NEUROLOGICAL: Normal speech, gait not observed. PSYCH: Normal mood, normal affect. SKIN: Warm, dry, normal turgor, no rashes or lesions noted. LABS Laboratory Results - last 24 hr 01/20/17 01/20/17 01/21/17 17:15 17:15 00:30 PTT (Actin FS) 41.8 H Creatine Kinase 612 H Creatine Kinase Index 0.6 CK-MB (CK-2) 4.227 H CK-MB (CK-2) Rel Index Cancelled Troponin I 0.30 H D 01/21/17 09:39 PTT (Actin FS) 66.1 H D Creatine Kinase Creatine Kinase Index CK-MB (CK-2) CK-MB (CK-2) Rel Index Troponin I HOSPITAL COURSE: Date of Admission:01/20/17 Patient is a 46 yo intoxicated M with a PMHx of HTN, continuous polysubstance abuse presents BIBA from [facility] with high blood pressure. Patient is a poor historian secondary to recent substance abuse. We are unsure if he is compliant with his medications at home. Patient presented earlier today to [facility] after drinking ETOH and smoking cocaine and was found to have high BP and was sent to ED for further evaluation. At [facility] lavs showed elevated CK and trending troponin. Patient states hes never had any chest pain, palpitations, blurred vision and only reported to [facility] for detox. Patient denies IV drug abuse. Patient admits to daily weed, cocaine and ETOH abuse. Denies previous cardiac workup. Last drink 12 hours ago. Patients thinks his pharmacy is either a [facility] or a [facility] on [address]. ER course was notable for: (1) Elevated Troponins (2) ECG with flipped T waves in lateral leads 46 year old male with pmh of HTN non compliant to his medications and polysubatance abuse presented with elevated troponins. NSTEMI: Pt was placed on Aspirin, Plavix, Atorvastatin. Pt was started on heparin drip. Troponins were done q5 and peak to 0.47 now trending. Echocardiogram showed left moderate concentric hypertrophy, normal ejection fraction, no wall motion abnormalities. Pt was offered stress test on Tuesday or transfer for cardiac cath by cardiology but refused both option. Pt is to continue aspirin 81 mg po daily, plavix 75 mg po daily, and atorvastatin 40mg po daily and follow up with cardiology ( Dr Garnica) within a week and be complaint to medication. Pt is to avoid cocaine or any other illicit drug use. HTN: Avoid betablocker due to cocaine use. Norvac was increased to 10 mg po daily to reach SBP goal of 140 Polysubstance abuse: Pt verbalized need to stop using drug and want to go to rehab, was accepted to [facility]. Pt to continue treatment at [facility] Date of Discharge: 01/21/17 Minutes to complete discharge: 35 Discharge Summary Reason For Visit: NSTEMI HYPERTENSION DRUG ABUSE Current Active Problems Cocaine abuse (Acute) Drug abuse (Acute) Hypertension (Acute) NSTEMI (non-ST elevated myocardial infarction) (Acute) - Instructions Diet, Activity, Other Instructions: you are being discharged to [facility] to be further evaluated and inaptient rehab for your drug abuse. it is very important that you abstain from drug use as this has a negative effect on your health, and can lead to another heart attack as well as lead to . it is important that you take your medications daily. follow up with a primary care doctor as well as a internet specialist once you are released from [facility]. information on these doctors have been provided If you develop chest pain or difficutly breathing return to the ER. Referrals: Luca Garnica MD [Staff Physician] - Mario Oneal MD [Staff Physician] - Jony Johnson MD [Primary Care Provider] - Disposition: TRANSFER ACUTE CARE/OTHER HOSP - Home Medications Comprehensive Discharge Medication List: Ambulatory Orders Amlodipine Besylate [Norvasc -] 10 mg PO DAILY #30 tablet 01/21/17 Aspirin Coated [Ecotrin -] 81 mg PO DAILY #30 01/21/17 Atorvastatin Ca [Lipitor] 40 mg PO HS #30 tablet 01/21/17 Clopidogrel Bisulfate [Plavix -] 75 mg PO DAILY #30 tablet 01/21/17 This patient is new to me today: Yes Date on this admission: 01/26/17 Emergency Visit: Yes ED Registration Date: 01/20/17 Care time: The patient presented to the Emergency Department on the above date and was hospitalized for further evaluation of their emergent condition. Critical Care patient: No - Discharge Referral Referred to [facility] Med P.C.: No
--- NOTE | 2017-01-22 14:58 | EKG ---
Test Reason : Blood Pressure : / mmHG Vent. Rate : 091 BPM Atrial Rate : 091 BPM P-R Int : 118 ms QRS Dur : 082 ms QT Int : 356 ms P-R-T Axes : 067 056 107 degrees QTc Int : 437 ms NORMAL SINUS RHYTHM POSSIBLE LEFT ATRIAL ENLARGEMENT LEFT VENTRICULAR HYPERTROPHY T WAVE ABNORMALITY, CONSIDER LATERAL ISCHEMIA ABNORMAL ECG NO PREVIOUS ECGS AVAILABLE Confirmed by CLINT DEL REAL MD ([id number]) on 01/22/2017 2:58:07 PM Referred By: Confirmed By:CLINT DEL REAL MD
== END 2017-01-21 13:29 | disposition short-term general hospital (02) | DRG 190 ==
LOC: JER 19:53 → JERBED 01-20 02:25 → UNDOADMIN 01-20 02:38 → JERBED 01-20 02:38 → J4W 01-20 17:04
PROVIDERS: ADMIT Internal Medicine; ATTEND Internal Medicine
DX: I21.4 Non-ST elevation (NSTEMI) myocardial infarction (principal); I10 Essential (primary) hypertension; F14.10 Cocaine abuse, uncomplicated; D72.829 Elevated white blood cell count, unspecified; R07.9 Chest pain, unspecified
CPT/HCPCS: 36415; 71010-TC; 80048; 80053; 80061; 80307; 81003; 82550; 82553; 83721; 83735; 84100; 84484; 85025; 85730; 93005; 93010; 93306-TC; 99285-25; J1644